=== PATIENT | male | born 1990 | race Caucasian/White ===

== ENCOUNTER 2016-05-06 22:26 | Emergency (ER) | payer OTHER ==
[~2016-05-06] VITALS: Ht 172.7 cm; Wt 71.6 kg
[2016-05-06] MEDS ORDERED: FLUORESCEIN (FLUOR-I-STRIPS) 1 MG STRIP OD ONE (22:50)
[2016-05-06] MEDS ORDERED: TETRACAINE 0.5% OPHTHALMIC SOLUTION 4 ML BTL OD ONE (23:25)
--- NOTE | 2016-05-06 23:45 | NUR ---
REQUESTING AN EYE ELLEN TO REMOVE A FB. EYE ELLEN IN EYE TRAY IS THE WRONG SIZE. 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
[2016-05-07] MEDS ORDERED: ED- CIPROFLOXACIN 0.3% OPHTHALMIC DROPS (CILOXAN) 2.5 ML BTL OD ONE (00:20)
[2016-05-07] MEDS ORDERED: ED- HYDROcodone/ACETAMINOPHEN 5MG/325MG (NORCO) 6 TABLETS/BTL PO ONE (00:20)
[2016-05-07] MEDS ORDERED: IBUPROFEN 800 MG (MOTRIN) TAB PO ONE (00:20)
--- NOTE | 2016-05-07 00:46 | NUR ---
Patient okay to leave, not futher treatment being given. Patient able to take norco sent home with him if Ibuprofen is not effective for pain.
[2016-05-07 00:48] VITALS: BP 128/79
== END 2016-05-07 00:49 | disposition home or self-care (01) ==
LOC: ED 22:28
DX: T15.01XA Foreign body in cornea, right eye, initial encounter (principal); W20.8XXA Other cause of strike by thrown, projected or falling object, initial encounter
CPT/HCPCS: 99283